=== PATIENT | male | born 1985 | race Caucasian/White ===

== ENCOUNTER 2018-03-10 10:33 | Emergency (ER) | payer OTHER ==
[~2018-03-10] VITALS: Ht 177.8 cm; Wt 96.4 kg
[2018-03-10 10:35] VITALS: BP 150/103
[2018-03-10] MEDS ORDERED: CEFTRIAXONE 250 MG IM ONE (11:30)
[2018-03-10] MEDS ORDERED: AZITHROMYCIN 500 MG TABLET PO ONE (11:30)
[2018-03-10] MEDS ORDERED: CEFTRIAXONE 250 MG ONE (12:10)
[2018-03-10] MEDS ORDERED: AZITHROMYCIN 250 MG TABLET ONE (12:12)
[2018-03-10] MEDS ORDERED: LIDOCAINE-MPF 1%, 5ML ONE (12:12)
[2018-03-10 12:48] LABS: MICROSCOPIC INDICATED
[2018-03-10 12:49] LABS: CULTURE INDICATED? YES
== END 2018-03-10 13:21 | disposition home or self-care (01) ==
LOC: ED 12:24
DX: N34.2 Other urethritis (principal); N30.01 Acute cystitis with hematuria; R22.9 Localized swelling, mass and lump, unspecified; F17.200 Nicotine dependence, unspecified, uncomplicated
CPT/HCPCS: 81001; 87077; 87086; 87491; 87591; 96372; 99284; J0696

== ENCOUNTER 2018-05-19 17:40 | Emergency (ER) | payer OTHER ==
[~2018-05-19] VITALS: Ht 177.8 cm; Wt 91.0 kg
[2018-05-19 17:42] VITALS: BP 141/91
[2018-05-19] MEDS ORDERED: INSU100C SQ-INSULIN (17:46)
[2018-05-19] MEDS ORDERED: KETOROLAC 30 MG/1 ML ONE (18:28)
[2018-05-19] MEDS ORDERED: KETOROLAC 30 MG/1 ML IM ONE (18:30)
== END 2018-05-19 20:16 | disposition home or self-care (01) ==
LOC: ED 18:11
DX: S30.0XXA Contusion of lower back and pelvis, initial encounter (principal); S09.90XA Unspecified injury of head, initial encounter; F15.10 Other stimulant abuse, uncomplicated; R07.89 Other chest pain; W10.9XXA Fall (on) (from) unspecified stairs and steps, initial encounter; Y93.89 Activity, other specified; Y92.89 Other specified places as the place of occurrence of the external cause; Y99.8 Other external cause status
CPT/HCPCS: 70450; 71045; 72110; 72125; 93005; 96372; 99284; J1885